=== PATIENT | male | born 1970 | race Caucasian/White ===

== ENCOUNTER 2024-12-14 17:49 | Emergency (ER) | payer SELFPAY ==
[2024-12-14] MEDS ORDERED: Naloxone 0.4 MG/ML SDV IVPUSH PRN (18:43)
[2024-12-14] MEDS: HYDROmorphone 1 MG/ML Syringe IM ONE (18:53)
[2024-12-14] MEDS: Lidocaine 1% 10 ML MDV INJECT ONE (19:04)
== END 2024-12-14 19:12 | disposition home or self-care (01) ==
LOC: MW.ED 17:49
DX: S43.014A Anterior dislocation of right humerus, initial encounter (principal); F17.210 Nicotine dependence, cigarettes, uncomplicated; W01.0XXA Fall on same level from slipping, tripping and stumbling without subsequent striking against object, initial encounter; X50.1XXA Overexertion from prolonged static or awkward postures, initial encounter
CPT/HCPCS: 23650; 96372; 99283; J1171